=== PATIENT | female | born 1975 | race African-American/Black ===

== ENCOUNTER → 2016-12-30 23:17 | Emergency (ER) | payer OTHER ==
[~2016-12-30 23:17] MED LIST: ACTOS30 MG; BACTRIM DS TABL1 TA1; DIFLUCAN100 MG PO; GLUCOVANCE 5/501 TA2 PO; HUMALOG100 U/M2; IBUPROFEN600 MG PO; KEFLEX500 MG PO; LEVEMIR100 UNITS/ SUBQ; LISINOPRIL PO; METFORMIN HCL500 M1 PO; METHADOPA PO; PRENATAL1 TA1 PO; ULTRAM PO; VERELAN180 MG PO
== END | disposition left against medical advice (07) ==
LOC: CED 23:17
DX: Z53.21 Procedure and treatment not carried out due to patient leaving prior to being seen by health care provider (principal)